=== PATIENT | male | born 1985 | race Caucasian/White ===

== ENCOUNTER 2020-04-16 11:44 | Emergency (ER) | payer BC ==
[~2020-04-16] VITALS: Ht 180.3 cm; Wt 63.6 kg
[2020-04-16 13:05] LABS: BASO % 0.9 % (0.0-2.0); EOS # 0.1 (0.0-0.7); EOS % 1.9 % (0-4.0); GRAN # 2.6 (1.4-6.5); GRAN % 56.5 % (42.2-75.2); HEMATOCRIT 43.6 % (42.0-52.0); HEMOGLOBIN 15.3 g/dl (13.5-18.0); LYMPH # 1.5 (1.2-3.4); LYMPH % 31.3 % (20.0-51.0); MEAN CELL VOLUME 80 fl (80.0-100.0); MEAN CORPUSCULAR HEMOGLOBIN 28 pg (27.0-31.0); MEAN CORPUSCULAR HGB CONC 35 g/dl (33.0-37.0); MEAN PLATELET VOLUME 11.2 fl (7.4-10.4); MONO # 0.4 (0.1-0.6); MONO % 9.2 % (1.7-9.3); PLATELET COUNT 301 K/mm3 (130-400); RED BLOOD COUNT 5.42 M/mm3 (4.20-5.60); REDCELL DISTRIBUTION WIDTH-CV 12.6 % (11.5-14.5)
[2020-04-16 13:18] LABS: ALBUMIN 4.4 gm/dL (3.5-5.0); BILIRUBIN,TOTAL 0.7 mg/dL (0.0-1.0); CALCIUM 9.3 mg/dL (8.4-10.2); CREATININE, serum 0.86 (0.66-1.25); TOTAL PROTEIN 7.1 gm/dL (6.4-8.2)
[2020-04-16 13:33] LABS: COLLECTION METHOD CLEAN CATCH
[2020-04-16 13:38] LABS: PH 7 (5-8); SQUAMOUS EPITHELIAL None Seen /hpf; URINE APPEARANCE Clear; URINE BACTERIA None Seen /hpf; URINE BILIRUBIN Negative (NEGATIVE); URINE BLOOD Negative (NEGATIVE); URINE COLOR Colorless; URINE GLUCOSE Negative (NEGATIVE); URINE KETONE Negative (NEGATIVE); URINE LEUKOCYTE ESTERASE Negative (NEGATIVE); URINE NITRATE Negative (NEGATIVE); URINE PROTEIN(semi-quant) Negative (NEGATIVE); URINE RBC None Seen /hpf; URINE UROBILINOGEN Negative (NEGATIVE)
[2020-04-16] MEDS ORDERED: DOXYCYCLINE 10100 MG PO (13:42)
[2020-04-16 14:11] VITALS: BP 118/85; PULSE 82; TEMP 98
== END 2020-04-16 14:14 | disposition home or self-care (01) ==
LOC: COL.ER 11:44
PROVIDERS: Family Medicine; Physician Assistant
DX: N45.1 Epididymitis (principal); Z88.0 Allergy status to penicillin
CPT/HCPCS: J0696; J1885; J2270; J2405; J7030